=== PATIENT | female | born 1995 | race Caucasian/White ===

== ENCOUNTER 2021-08-12 06:03 | Inpatient (IN) ==
[2021-08-12] MEDS ORDERED: BETADINE SOLN ONE (06:50)
[2021-08-12] MEDS ORDERED: D5 1/2 NS 1L W PITOCIN 20 UNITS/L 20 UNITS/1,000 ML BAG IV ONE (06:50)
[2021-08-12] MEDS ORDERED: D5LR 1L W PITOCIN 10 UNITS/L 10 UNITS/1,000 ML BAG IV ONE (06:50)
[2021-08-12] MEDS ORDERED: D5 1/2 NS 1000 ML 1,000 ML IV ONE (06:50)
[2021-08-12] MEDS ORDERED: PITOCIN ONE (06:50)
[2021-08-12] MEDS ORDERED: D5LR 1L W PITOCIN 10 UNITS/L 10 UNITS/1,000 ML BAG IV PRN (07:00)
[2021-08-12] MEDS ORDERED: PITOCIN IVP ONE (07:52)
[2021-08-12] MEDS ORDERED: REGLAN INJ 10 MG VIAL IVP PRN (07:52)
[2021-08-12] MEDS ORDERED: PHENERGAN INJ 25 MG IM PRN ×2 (07:52→14:22)
[2021-08-12] MEDS ORDERED: STADOL INJ IVP PRN (07:53)
[2021-08-12] MEDS ORDERED: D5 1/2 NS 1000 ML 1,000 ML IV SCH (08:00)
[2021-08-12] MEDS ORDERED: STADOL INJ ONE (08:51)
[2021-08-12] MEDS ORDERED: LR 1000 ML IV 1,000 ML IV ONE ×2 (08:52→11:10)
[2021-08-12] MEDS ORDERED: NAROPIN EPIDURAL 0.2% 100 ML ONE (08:52)
[2021-08-12] MEDS ORDERED: FENTANYL VIAL INJ 100 mcg ONE (08:52)
[2021-08-12] MEDS ORDERED: EPHEDRINE SULFATE INJ ONE (09:53)
[2021-08-12] MEDS ORDERED: XYLOCAINE 1 % (PLAIN) ONE (13:40)
[2021-08-12] MEDS ORDERED: TORADOL 60 MG VIAL IM ONE (14:22)
[2021-08-12] MEDS ORDERED: MOTRIN TAB 800 MG PO PRN ×2 (14:22→22:00)
[2021-08-12] MEDS ORDERED: TORADOL 30 MG VIAL ONE (14:24)
[2021-08-12] MEDS ORDERED: D5 1/2 NS 1000 ML 1,000 ML with PITOCIN 20 UNITS IV SCH ×2 (15:00)
[2021-08-12] MEDS ORDERED: MILK OF MAGNESIA PO PRN (15:09)
[2021-08-12] MEDS ORDERED: AMBIEN PO PRN (15:09)
[2021-08-12] MEDS ORDERED: HYPERRHO S/D (or RHOGAM) IM PRN (15:09)
[2021-08-12] MEDS ORDERED: DERMOPLAST PAIN RELIEF SPRAY TOP PRN (15:09)
[2021-08-12] MEDS ORDERED: COLACE CAP 100 MG PO SCH (21:00)
[2021-08-12] MEDS: NORCO 5/325 MG TAB PO PRN (22:10)
[2021-08-13 05:25] LABS: HEMATOCRIT 31.1 % (36.0-47.0)
--- NOTE | 2021-08-13 07:30 | NOTE.PROOB ---
progress Note OB- Subjective Data Subjective: No complaints, decreased lochia. Tolerating regular diet. No N/V. Ambulating well. No dysuria. Objective Data Result Diagrams: 08/13/21 04:08 Objective Data: CV= RRR no MRG Lungs=CTA Bilaterally Abd=(+) BS, soft, NTND, Fundus firm/NT/ at 3 cm below umbilicus. Ext=no edema, NT, no cords Plan (1) Gestational diabetes: Plan: pt is ready for d/c (2) Term delivered:
[2021-08-13] MEDS ORDERED: PRENATAL PLUS PO SCH (09:00)
[2021-08-13] MEDS: NORCO 5/325 MG TAB PO PRN ×2 (09:15→14:46)
[2021-08-13 14:15] VITALS: BP 114/59
== END 2021-08-13 15:10 | disposition home or self-care (01) | DRG 806 ==
LOC: LD 06:03 → MED/SURG 15:10
PROVIDERS: ADMIT Obstetrics & Gynecology; ATTEND Obstetrics & Gynecology
DX: O24.419 Gestational diabetes mellitus in pregnancy, unspecified control; O36.0930 Maternal care for other rhesus isoimmunization, third trimester, not applicable or unspecified; Z37.0 Single live birth; O70.1 Second degree perineal laceration during delivery; Z3A.39 39 weeks gestation of pregnancy; Z20.822 Contact with and (suspected) exposure to COVID-19